=== PATIENT | female | born 2000 | race Hispanic/Latino ===

== ENCOUNTER 2018-02-01 00:08 | Emergency (ER) | payer OTHER ==
[2018-02-01 00:24] VITALS: TEMP 99.3
--- NOTE | 2018-02-01 00:46 | ED.PDOC ---
History of Present Illness - General Chief Complaint: Headache Stated Complaint: headache Time Seen by Provider: 02/01/18 00:36 Source: patient Exam Limitations: no limitations - History of Present Illness Initial Comments: Patient presents with a headache for a bout 6 hours. It is frontal, non- radiating, started sharp but now is dull, constant, worse in bright light, does not recall previous episodes. Associated with mild nausea but no vomiting. She just gave by without complications one week ago. No other complaints. Timing/Duration: 4-6 hours Severity: moderate Improving Factors: rest Worsening Factors: other - light Associated Symptoms: other - nausea Allergies/Adverse Reactions: Allergies NO KNOWN ALLERGY Allergy (Verified 02/01/18 00:24) Home Medications: Ambulatory Orders Amoxicillin & Pot Clavulanate [Augmentin Tab] 500 mg PO BID #14 tablet 02/01/18 Ibuprofen [Ibuprofen] PRN 02/01/18 Vit W/ Fe Polysacch C [Vitafol Ultra 29-0.6-0.4-200 mg] 02/01/18 Review of Systems - Review of Systems Constitutional: States: see HPI EENTM: States: see HPI Respiratory: States: see HPI Cardiology: States: see HPI Gastrointestinal/Abdominal: States: see HPI Genitourinary: States: see HPI Musculoskeletal: States: see HPI Skin: States: see HPI Neurological: States: see HPI Endocrine: States: no symptoms reported Hematologic/Lymphatic: States: no symptoms reported Past Medical History (General) - Patient Medical History Hx Diabetes: No Surgical History: no surgical history - Vaccination History Hx Influenza Vaccination: No - Female History Patient is a Female of Child Bearing Age (10 -59 yrs old): Yes Patient : No - childbirth 6 days ago Family Medical History - Family History Mother Family History: Unknown Physical Exam - Physical Exam General Appearance: Alert Eye Exam: bilateral normal Ears, Nose, Throat: sinus pain/drainage - Patient had mild TTP over bilateral maxillary sinuses and bilateral clear nasal exudates. Neck: non-tender, full range of motion, supple Respiratory: lungs clear, normal breath sounds Cardiovascular/Chest: normal peripheral pulses, regular rate, rhythm, no edema Gastrointestinal/Abdominal: normal bowel sounds, non tender, soft Back Exam: normal inspection, no CVA tenderness Extremity: normal range of motion, non-tender, normal inspection, no pedal edema Neurologic: narrow gauge brakeman II-XII nml as tested, no motor/sensory deficits, alert, normal mood/affect, oriented x 3 Skin Exam: normal color Lymphatic: no adenopathy Progress - Progress Progress: 02/01/18 02:00 Patient's headache improved somewhat with Tylenol 650 mg po x one. She refused Toradol. There was a mild UTI on UA so she was given Augmentin 500 for therapeutic advantage to also treat a likely acute sinusitis that is causing her headache. Laboratory Tests 02/01/18 02/01/18 02/01/18 00:42 01:00 01:00 WBC 11.0 H RBC 3.41 L Hgb 9.6 L Hct 29.8 L MCV 87.4 MCH 28.1 MCHC 32.3 L RDW 14.6 H Plt Count 252 MPV 9.2 Absolute Neuts (auto) 8.10 H Absolute Lymphs (auto) 1.90 Absolute Monos (auto) 0.90 H Absolute Eos (auto) 0.20 Absolute Basos (auto) 0.10 Neutrophils % 73.2 Lymphocytes % 16.8 L Monocytes % 7.7 Eosinophils % 1.8 Basophils % 0.5 Sodium 140 Potassium 3.8 Chloride 108 Carbon Dioxide 24 Anion Gap 11.8 L BUN 13 Creatinine 0.55 L BUN/Creatinine Ratio 23.6 H Random Glucose 100 Serum Osmolality 279.6 Calcium 8.7 Urine Color Straw Urine Appearance Sl cloudy Urine pH 7.5 Ur Specific [place] 1.015 Urine Protein 100 H Urine Glucose (UA) Negative Urine Ketones Negative Urine Blood Large H Urine Nitrite Negative Urine Bilirubin Negative Urine Urobilinogen 1.0 Ur Leukocyte Esterase Moderate H Urine RBC 20-30 H Urine WBC 10-20 H Ur Epithelial Cells 3-5 Amorphous Sediment 1+ Urine Bacteria 1+ Urine Mucus Trace Care instructions given. E.R. warnings given. Questions were elicited and and answered. The patient voiced understanding and agreement with the plan. Departure - Departure Clinical Impression: Sinus headache, UTI (urinary tract infection) Disposition: Discharge to Home or Self Care Departure Forms: ED Discharge - Pt. Copy, Patient Portal Self Enrollment Instructions: DI for Headache Diet: resume usual diet Activity: increase activity as tolerated Referrals: Ro Tucker [facility] ADMISSIONS [Primary Care Provider] - 1-2 Weeks Prescriptions: Amoxicillin & Pot Clavulanate [Augmentin Tab] 500 mg PO BID #14 tablet Home Medications: Ambulatory Orders Amoxicillin & Pot Clavulanate [Augmentin Tab] 500 mg PO BID #14 tablet 02/01/18 Ibuprofen [Ibuprofen] PRN 02/01/18 Vit W/ Fe Polysacch C [Vitafol Ultra 29-0.6-0.4-200 mg] 02/01/18 Additional Instructions: Take prescription as directed. You may use ibuprofen or Tylenol for your headache. Return to the E.R. if headache has not resolved in the next 72 hours or for worsening symptoms.
[2018-02-01] MEDS: ONDANSETRON ODT 8 MG TAB SL ONE (00:51)
[2018-02-01] MEDS: ACETAMINOPHEN 325 MG TAB PO ONE (00:51)
[2018-02-01] MEDS: AMOXICILLIN & POT CLAVULANATE 500MG TAB PO SCH (02:03)
[2018-02-01 02:19] VITALS: BP 136/78; O2SAT 99
== END 2018-02-01 02:19 | disposition home or self-care (01) ==
LOC: ER 00:08
DX: R51 Headache (principal); N39.0 Urinary tract infection, site not specified

== ENCOUNTER 2019-01-09 03:40 | Emergency (ER) | payer OTHER ==
--- NOTE | 2019-01-09 04:18 | ED.PDOC ---
History of Present Illness - General Chief Complaint: Problem Stated Complaint: rt lateral and backpain, unable to void Time Seen by Provider: 01/09/19 04:00 - History of Present Illness Initial Comments: 18 yo F no significant PMH presents to ED c/o R flank pain dysuria sensation of needing to urinate but unable with nausea vomiting x 1 day. Denies fever admits chills nausea vomiting denies diarrhea chest pain sob diaphoresis. No change in diet symptoms disturb rest no change in bowel denies drinking or smoking admits FH HTN DM has no PMD for follow up. No other c/o today. Allergies/Adverse Reactions: Allergies NO KNOWN ALLERGY Allergy (Verified 02/01/18 00:24) Home Medications: Ambulatory Orders Amoxicillin & Pot Clavulanate [Augmentin Tab] 500 mg PO BID #14 tablet 02/01/18 Ibuprofen PRN 02/01/18 Vit W/ Fe Polysacch C [Vitafol Ultra 29-0.6-0.4-200 mg] 02/01/18 Acetaminophen [Tylenol] 650 mg PO Q6H PRN #30 tab 01/09/19 Amoxicillin & Pot Clavulanate [Augmentin Tab] 875 mg PO BID 10 Days #20 tab 01/09/19 Ibuprofen 600 mg PO Q6H PRN #20 tab 01/09/19 Tamsulosin HCl [Flomax] 0.4 mg PO DAILY 5 Days #5 cap 01/09/19 Review of Systems - Review of Systems Constitutional: States: chills, malaise EENTM: States: see HPI Respiratory: States: see HPI Cardiology: States: see HPI Gastrointestinal/Abdominal: States: see HPI Genitourinary: States: dysuria, pain Musculoskeletal: States: see HPI Neurological: States: no symptoms reported Endocrine: States: no symptoms reported Hematologic/Lymphatic: States: no symptoms reported All other Systems: Reviewed and Negative Past Medical History (General) - Patient Medical History Hx Cardiac Disorders: No Hx Diabetes: No Surgical History: no surgical history - Vaccination History Hx Tetanus, Diphtheria Vaccination: No Hx Influenza Vaccination: No - Social History Hx Tobacco Use: No Hx Alcohol Use: No - Female History Patient : No - childbirth 6 days ago Family Medical History - Family History Mother Family History: Unknown Living Status: Still Living Father Living Status: Unknown Hx Family Hypertension: Yes Hx Family Diabetes: Yes Physical Exam - Physical Exam General Appearance: Other - uncomfortable Eyes, Ears, Nose, Throat Exam: normal ENT inspection Neck: non-tender, full range of motion Cardiovascular/Respiratory: regular rate, rhythm Gastrointestinal/Abdominal: soft, tenderness - suprapubic area Back Exam: CVA tenderness (R) Extremity: normal range of motion, non-tender Neurologic: no motor/sensory deficits Skin Exam: normal color Progress - Progress Progress: 01/09/19 04:20 A/P-Dysuria Flank Pain Abdominal Pain 1.tylenol zofran iv bolus cbc cmp lipase urinalysis upreg ct abdomen pelvis reassess 01/09/19 05:44 Laboratory Tests 01/09/19 01/09/19 01/09/19 03:59 04:07 04:07 WBC 12.2 H RBC 4.59 Hgb 12.9 Hct 38.8 MCV 84.5 MCH 28.1 MCHC 33.2 RDW 14.4 Plt Count 246 MPV 9.2 Absolute Neuts (auto) 8.50 H Absolute Lymphs (auto) 2.50 Absolute Monos (auto) 1.10 H Absolute Eos (auto) 0.10 Absolute Basos (auto) 0.00 Neutrophils % 69.7 Lymphocytes % 20.2 Monocytes % 9.0 Eosinophils % 0.7 L Basophils % 0.4 Sodium 137 Potassium 3.4 L Chloride 101 Carbon Dioxide 25 Anion Gap 14.4 BUN 17 Creatinine 0.72 BUN/Creatinine Ratio 23.6 H Random Glucose 121 H Serum Osmolality 276.6 Calcium 9.2 Total Bilirubin 0.4 AST 18 ALT 18 Alkaline Phosphatase 71 L Serum Total Protein 7.8 Albumin 4.5 Globulin 3.3 Albumin/Globulin Ratio 1.4 Lipase 31 Serum HCG, Qual Urine Color Yellow Urine Appearance Sl cloudy Urine pH 7.0 Ur Specific [place] 1.025 Urine Protein Negative Urine Glucose (UA) Negative Urine Ketones Negative Urine Blood Small H Urine Nitrite Negative Urine Bilirubin Negative Urine Urobilinogen 1.0 Ur Leukocyte Esterase Negative Urine RBC 5-10 H Urine WBC 1-3 Ur Epithelial Cells 5-10 Amorphous Sediment 2+ Urine Bacteria 0 01/09/19 04:08 WBC RBC Hgb Hct MCV MCH MCHC RDW Plt Count MPV Absolute Neuts (auto) Absolute Lymphs (auto) Absolute Monos (auto) Absolute Eos (auto) Absolute Basos (auto) Neutrophils % Lymphocytes % Monocytes % Eosinophils % Basophils % Sodium Potassium Chloride Carbon Dioxide Anion Gap BUN Creatinine BUN/Creatinine Ratio Random Glucose Serum Osmolality Calcium Total Bilirubin AST ALT Alkaline Phosphatase Serum Total Protein Albumin Globulin Albumin/Globulin Ratio Lipase Serum HCG, Qual Negative Urine Color Urine Appearance Urine pH Ur Specific [place] Urine Protein Urine Glucose (UA) Urine Ketones Urine Blood Urine Nitrite Urine Bilirubin Urine Urobilinogen Ur Leukocyte Esterase Urine RBC Urine WBC Ur Epithelial Cells Amorphous Sediment Urine Bacteria 01/09/19 06:38 A/P-Kidney Stone, Flank Pain Abdominal Pain on reassessment pt pain is well controlled wishes to go home will bolus one ore liter NS give flomax d/c follow up pcp tylenol ibuprofen flomax Departure - Departure Clinical Impression: Kidney stones, Flank pain Abdominal pain Qualifiers: Abdominal location: generalized Qualified Code(s): R10.84 - Generalized abdominal pain Time of Disposition: 06:42 Disposition: Discharge to Home or Self Care Condition: Good Departure Forms: ED Discharge - Pt. Copy, Patient Portal Self Enrollment Instructions: DI for Kidney Stones Prescriptions: Acetaminophen [Tylenol] 650 mg PO Q6H PRN #30 tab PRN Reason: Pain Amoxicillin & Pot Clavulanate [Augmentin Tab] 875 mg PO BID 10 Days #20 tab Ibuprofen 600 mg PO Q6H PRN #20 tab PRN Reason: Pain Tamsulosin HCl [Flomax] 0.4 mg PO DAILY 5 Days #5 cap Home Medications: Ambulatory Orders Amoxicillin & Pot Clavulanate [Augmentin Tab] 500 mg PO BID #14 tablet 02/01/18 Ibuprofen PRN 02/01/18 Vit W/ Fe Polysacch C [Vitafol Ultra 29-0.6-0.4-200 mg] 02/01/18 Acetaminophen [Tylenol] 650 mg PO Q6H PRN #30 tab 01/09/19 Amoxicillin & Pot Clavulanate [Augmentin Tab] 875 mg PO BID 10 Days #20 tab 01/09/19 Ibuprofen 600 mg PO Q6H PRN #20 tab 01/09/19 Tamsulosin HCl [Flomax] 0.4 mg PO DAILY 5 Days #5 cap 01/09/19
[2019-01-09] MEDS: ACETAMINOPHEN 500 MG TAB PO ONE (04:19)
[2019-01-09] MEDS: SODIUM CHLORIDE 0.9% 1000ML 1,000 ML IVS ONE ×2 (04:20→06:43)
[2019-01-09] MEDS: ONDANSETRON INJ 4 MG/2 ML VIAL IV ONE (04:20)
--- NOTE | 2019-01-09 06:18 | CT ---
CT ABDOMEN AND PELVIS WITHOUT CONTRAST CLINICAL HISTORY: renal colic COMPARISON: None. TECHNIQUE: Axial unenhanced CT imaging of the abdomen and pelvis performed. Reformatted coronal and sagittal images reviewed. A dose reduction technique was utilized with automated exposure control according to patient size. FINDINGS: Clear lung bases. Heart is normal in size. Normal liver. Gallbladder is contracted. Normal spleen, pancreas, adrenal glands. There is mild fullness of the right renal pelvis. AP pelvis is 8 mm. There are nonobstructing right renal calculi. The largest is within the inferior right renal pelvis, 3 mm. Mild right perinephric edema. Asymmetric dilatation of the right ureter. There is a right ureterovesical junction 4 mm calculus. A few nonobstructing punctate calculi are seen within the left kidney, largest is 2 mm. No left hydronephrosis. Normal aorta and inferior vena cava caliber. No adenopathy. Normal stomach, small bowel loops, right lower quadrant appendix and colon. No mesenteric edema, ascites or free air. Normal bladder although not distended. The uterus is retroverted. There is minimal pelvic free fluid. Normal ovaries. No pelvic adenopathy. Unremarkable lumbar spine. Intact bony pelvis. Normal hips. IMPRESSION: 1. Right ureterovesical junction 4 mm obstructing stone with mild right hydronephrosis and obstructive uropathy. Additional nonobstructing bilateral renal pelvic calculi are present. 2. Minimal pelvic free fluid.. Electronically signed by: Kathie Thornton DO 01/09/2019 6:11 AM CDT
[2019-01-09] MEDS: TAMSULOSIN 0.4 MG CAP PO ONE (06:43)
[2019-01-09 07:48] VITALS: BP 121/64; TEMP 97.5; O2SAT 100
== END 2019-01-09 07:48 | disposition home or self-care (01) ==
LOC: ER 03:40
DX: N13.2 Hydronephrosis with renal and ureteral calculous obstruction (principal); R11.2 Nausea with vomiting, unspecified
CPT/HCPCS: 74176; 80053; 81001; 83690; 84703; 85025; J2405; J7030